=== PATIENT | male | born 1995 | race Caucasian/White ===

== ENCOUNTER 2024-02-28 14:46 | Emergency (ER) | payer SELFPAY ==
--- NOTE | 2024-02-28 15:48 | ED.GENMED ---
History of Present Illness
General
Chief Complaint: Skin Surface Trauma
Source: patient
Exam Limitations: none
Time Seen by Provider: 02/28/24 15:24
Nursing documentation reviewed up to this point in time: agreed with
Travel History
Have you had any contact with someone who has COVID-19?: No
Do you have any symptoms of coronavirus? Fever > 100 degrees, chills, cough, shortness of breath, sore throat, loss of taste or smell, muscle aches, or headache?: No
History of Present Illness
History of Present Illness:
29-year-old male presenting to the emergency department today with concerns of a laceration to his right pinky finger while at work. He claims that immediately cleaned the area and this was immediately bleeding. Denies any numbness weakness or
additional concerns. He is unsure when his last tetanus shot was but is not interested in tetanus shot here today. No risk factors for infection.
Past History
Past History
ED Past Medical History: None
Social History
Tobacco: Non-smoker
Personal: Single
Living: with family
Employment: Employed
Review of Systems
Review of Systems
Allergies reviewed?: Yes
All Other Systems: ROS reviewed and negative except as documented in HPI and ROS
Phy Exam
Physical Exam
Physical Exam:
GENERAL: Alert , in no apparent distress
EYE: pupils equal and reactive
NECK: Supple, no significant adenopathy.
ENT: o/p clr, mmm.
CARDIAC: Regular rate and rhythm .
LUNGS: Clear breath sounds bilaterally, no acute respiratory distress, no wheezes/rales/rhonchi
ABDOMEN: Soft, without focal tenderness, no r/g, no cvat
NEUROLOGICAL: Alert and oriented, no focal neuro deficits
SKIN: Distal skin avulsion of the right pinky finger roughly 1 cm in diameter. No involvement of the nailbed. Warm and dry, skin intact.
MUSCULOSKELETAL: Minimal discomfort surrounding the avulsion but otherwise good range of motion no tenderness to the remainder of the hand and finger. No edema, well perfused.
PSYCH: Normal and appropriate interaction.
Course
Vital Signs
Initial and Last Documented VS:
Initial Vital Signs
Temp Pulse Resp Pulse Ox
98.0 F 66 16 98
02/28/24 14:58 02/28/24 14:58 02/28/24 14:58 02/28/24 14:58
Last Documented Vital Signs
Temp Pulse Resp Pulse Ox
98.0 F 66 16 98
02/28/24 14:58 02/28/24 14:58 02/28/24 14:58 02/28/24 14:58
Procedures
Laceration Closure
Right Distal Fifth Finger:
Status of Wound: clean
Size of Wound in cm: 1
Description of Wound Edges: other (Distal skin avulsion)
Preparation: cleaned with saline
Anesthesia: other
Revision/Debridement: routine- no revision
Wound exploration: explored to base- no FB and no tendon involvement
Type of Closure: Dermabond-skin glue
MDM/Problems Addressed
MDM/Problems Addressed:
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 Immediately
started to bleed and was cleaned under a sink. He is unsure when his last tetanus shot was but claims that he does not tip get vaccines. It was offered to him but he refused. Otherwise low risk for infection not started on antibiotics. This was
cleaned thoroughly and closed with Dermabond to control bleeding. Otherwise stable for discharge.
*Critical Care Note
Total Time (30-74mins, 75-104mins- exclusive of procedures): Not Applicable
ED Attending Note
-
Portions of this chart may have been created with voice recognition software.� Occasional wrong word or��sound alike� substitutions may have occurred due to the inherent limitations of voice recognition software.
Discharge Plan
Departure
Patient Disposition: Home (Routine Discharge)
Date of Disposition: 02/28/24
Time of Disposition: 15:55
Patient with high blood pressure during this ER visit?: No
Condition: Good
Covid-19: Not Applicable
Discharge Problem:
Avulsion of skin
Instructions: Amputation of the Finger or Fingertip (DC)
Referrals:
NONE,* [Family Provider] -
Activity Restrictions/Additional Instructions:
You came to the emergency department today with concerns of a distal fingertip avulsion. Please keep the area clean covered and use the splint over the next week or so as this is healing. Return to the emergency department for any worsening, new
or concerning symptoms.
Interventions
Interventions:
*ED COVID-19 Vaccine History Last Done: 02/28/24 14:58
ED-Skin Assessment Last Done: 02/28/24 15:21
Discharge Date and Time
Print Language: UKRAINIAN
== END 2024-02-28 16:16 | disposition home or self-care (01) ==
LOC: EMR 14:46
PROVIDERS: EMERGENCY PHYSICIAN Emergency Medicine
DX: S61.216A Laceration without foreign body of right little finger without damage to nail, initial encounter (principal); W45.8XXA Other foreign body or object entering through skin, initial encounter; Y99.0 Civilian activity done for income or pay
CPT/HCPCS: 99282; 12011